=== PATIENT | male | born 1965 | race African-American/Black ===

== ENCOUNTER 2017-05-11 14:54 | Inpatient (IN) | payer OTHER ==
[2017-05-11 16:44] VITALS: BMI 29.2
--- NOTE | 2017-05-11 18:19 | HP ---
CIWA Score - CIWA Score Nausea/Vomitin-Mild Nausea/No Vomiting Muscle Tremors: 4-Moderate,w/Arms Extend Anxiety: 4-Mod. Anxious/Guarded Agitation: 4-Moderately Restless Paroxysmal Sweats: 1-Minimal Palms Moist Orientation: 0-Oriented Tacttile Disturbances: 0-None Auditory Disturbances: 0-None Visual Disturbances: 0-None Headache: 0-None Present CIWA-Ar Total Score: 14 Admission ROS BHS - HPI Chief Complaint: WITHDRAWAL SX Allergies/Adverse Reactions: Allergies Allergy/AdvReac Type Severity Reaction Status Date / Time No Known Allergies Allergy Verified 05/11/17 18:52 History of Present Illness: 52 YEARS OLD MALE WITH LONG HISTORY OF ALCOHOL COCAINE DEPENDENCE DENIES MEDICAL ISSUE HAS ANXIETY IS ADMITTED TO DETOX Exam Limitations: No Limitations - Ebola screening Have you traveled outside of the country in the last 21 days: No (N) Have you had contact with anyone from an Ebola affected area: No Have you been sick,other than usual withdrawal symptoms: No Do you have a fever: No - Review of Systems Constitutional: Changes in sleep, Weight Stable EENT: reports: Dental Problems (MULTIPLE TEETH MISSING) Respiratory: reports: No Symptoms reported Cardiac: reports: No Symptoms Reported GI: reports: Nausea, Poor Fluid Intake, Abdominal cramping : reports: No Symptoms Reported Musculoskeletal: reports: Joint Pain (RIGHT HIP) Integumentary: reports: Change in Color (RIGHT UPPER SHOULDER) Neuro: reports: Seizure (2001 ALCOHOL WITHDRAWAL RELATED), Tremors Endocrine: reports: No Symptoms Reported Hematology: reports: No Symptoms Reported Psychiatric: reports: Judgement Intact, Orientated x3, Anxious, Depressed Other Systems: Reviewed and Negative Patient History - Patient Medical History Hx Anemia: No Hx Asthma: No Hx Chronic Obstructive Pulmonary Disease (COPD): No Hx Cancer: No Hx Cardiac Disorders: No Hx Congestive Heart Failure: No Hx Hypertension: No Hx Hypercholesterolemia: No Hx Pacemaker: No HX Cerebrovascular Accident: No Hx Seizures: Yes (alcohol related 2001) Hx Dementia: No Hx Diabetes: No Hx Gastrointestinal Disorders: No Hx Liver Disease: No Hx Genitourinary Disorders: No Hx Sexually Transmitted Disorders: Yes (gonorrhea at age 15) Hx Renal Disease (ESRD): No Hx Thyroid Disease: No Hx Human Immunodeficiency Virus (HIV): No Hx Hepatitis C: No Hx Depression: Yes Hx Suicide Attempt: No Hx Bipolar Disorder: No Hx Schizophrenia: No - Patient Surgical History Past Surgical History: Yes Hx Neurologic Surgery: No Hx Cataract Extraction: No Hx Cardiac Surgery: No Hx Lung Surgery: No Hx Breast Surgery: No Hx Breast Biopsy: No Hx Abdominal Surgery: Yes (umbilical hernia 2001) Hx Appendectomy: No Hx Cholecystectomy: No Hx Genitourinary Surgery: No Hx Orthopedic Surgery: No Other Surgical History: umbilical hernia repair Anesthesia Reaction: No - PPD History Documented Results: Negative w/o proof Implanted On Prior [facility] Admission?: Yes Date: 12/13/12 PPD to be Administered?: Yes - Smoking Cessation Smoking history: Former smoker Have you smoked in the past 12 months: No Aproximately how many cigarettes per day: 0 Hx Chewing Tobacco Use: No Initiated information on smoking cessation: No - Substance & Tx. History Hx Alcohol Use: Yes Hx Substance Use: Yes Substance Use Type: Alcohol, Cocaine Hx Substance Use Treatment: Yes (2005) - Substances Abused Alcohol Route: Oral Frequency: Daily Amount used: VOLKA PINT Age of first use: 14 Date of Last Use: 05/11/17 Cocaine Route: Inhalation Frequency: 3-6 times per week Amount used: GRAM Age of first use: 28 Date of Last Use: 05/11/17 Family Disease History - Family Disease History Family Disease History: Heart Disease: Father (), Mother, [place]: Brother, Other: Father, Sister (NO CONTACT) Admission Physical Exam S - Vital Signs Vital Signs: Vital Signs - 24 hr 05/11/17 16:41 Temperature 97.3 F L Pulse Rate 67 Respiratory 20 Rate Blood Pressure 126/73 - Physical General Appearance: Yes: Appropriately Dressed, Mild Distress, Obese, Tremorous , Irritable, Sweating, Anxious HEENTM: Yes: Hearing grossly Normal, Normal ENT Inspection, Normocephalic, Normal Voice Respiratory: Yes: Chest Non-Tender, Lungs Clear, Normal Breath Sounds, No Respiratory Distress, No Accessory Muscle Use Neck: Yes: Supple, Trachea in good position Breast: Yes: Breasts Symetrical Cardiology: Yes: Regular Rhythm, Regular Rate, S1, S2 Abdominal: Yes: Non Tender, Soft Genitourinary: Yes: Within Normal Limits Back: Yes: Normal Inspection Musculoskeletal: Yes: Gait Steady, Back pain, Joint swelling, Muscle Pain Extremities: Yes: Normal Inspection, Non-Tender, Tremors Neurological: Yes: Fully Oriented, Alert, Normal Mood/Affect, Normal Response Integumentary: Yes: Warm Lymphatic: Yes: Within Normal Limits - Diagnostic (1) chronic neck pain cervical disc ,cervical radiculitis Status: Chronic (2) s/p umbilical herniorrhaphy Status: Resolved (3) Alcohol dependence with uncomplicated withdrawal Status: Acute (4) Cocaine dependence, uncomplicated Status: Chronic Cleared for Admission [facility] - Detox or Rehab [facility] Level of Care: Medically Managed Detox Regimen/Protocol: Librium [facility] Breath Alcohol Content Breath Alcohol Content: 0 Urine Drug Screen - Results Drug Screen Negative: No Urine Drug Screen Results: [place]-Cocaine
[2017-05-11] MEDS ORDERED: MENTHOL/PHENOL 1 EACH UD MM PRN (18:21)
[2017-05-11] MEDS ORDERED: IBUPROFEN 400 MG TABLET (FP) PO PRN (18:21)
[2017-05-11] MEDS ORDERED: hydrOXYzine PAMOATE 50 MG CAPSULE (FP) PO PRN ×2 (18:21→18:56)
[2017-05-11] MEDS ORDERED: guaiFENesin/D-METHORPHAN HB 10 ML UNIT-DOSE CUPS PO PRN (18:21)
[2017-05-11] MEDS ORDERED: MAGNESIUM CITRATE 300 ML BOTTLE PO PRN (18:21)
[2017-05-11] MEDS ORDERED: LOPERAMIDE HCL 2 MG CAPSULE PO PRN (18:21)
[2017-05-11] MEDS ORDERED: P-EPHED 60MG/TRIPROLIDI 2.5MG TABLET PO PRN (18:21)
[2017-05-11] MEDS ORDERED: MAG HYDROX/AL HYDROX/SIMETH 30 ML UNIT-DOSE CUP PO PRN (18:21)
[2017-05-11] MEDS ORDERED: ACETAMINOPHEN 325 MG TABLET (FP) PO PRN (18:21)
[2017-05-11] MEDS ORDERED: MAGNESIUM HYDROX 2400MG/30ML ORAL SUSPENSION 30 ML CUP PO PRN (18:21)
[2017-05-11] MEDS ORDERED: chlordiazePOXIDE HCL 25 MG CAPSULE PO PRN (18:21)
[2017-05-11] MEDS ORDERED: diphenhydrAMINE HCL 50 MG CAPSULE PO PRN (22:00)
[2017-05-11] MEDS: chlordiazePOXIDE HCL 25 MG CAPSULE PO SCH (22:24)
[2017-05-11] MEDS: THIAMINE HCL 100 MG TABLET (FP) PO SCH (22:24)
[2017-05-11 23:30] LABS: URINE APPEARANCE SLCLOUDY; URINE BILIRUBIN NEGATIVE (NEGATIVE); URINE BLOOD NEGATIVE (NEGATIVE); URINE COLOR DKYELLOW; URINE GLUCOSE (UA) NEGATIVE (NEGATIVE); URINE KETONE NEGATIVE (NEGATIVE); URINE LEUK ESTERASE NEGATIVE (NEGATIVE); URINE NITRITE NEGATIVE (NEGATIVE); URINE PROTEIN NEGATIVE (NEGATIVE); URINE UROBILINOGEN NEGATIVE mg/dL (0.2-1.0)
[2017-05-12] MEDS: chlordiazePOXIDE HCL 25 MG CAPSULE PO SCH ×4 (06:46→22:26)
[2017-05-12] MEDS: PRENATAL VITAMINS W/ FOLIC ACID TABLET (FP) PO SCH (10:25)
[2017-05-12 10:26] LABS: ALBUMIN 3.5 g/dl (3.4-5.0); ANION GAP 8 (8-16); BILIRUBIN,TOTAL 0.4 mg/dL (0.2-1.0); CO2 26 mmol/L (21-32); GLUCOSE,RANDOM 89 mg/dL (74-106); SGOT/AST 15 U/L (15-37); SGPT/ALT 30 U/L (12-78); TOT PROT 6.7 g/dl (6.4-8.2)
[2017-05-12] MEDS: LORATADINE 10 MG TABLET PO SCH (10:26)
[2017-05-12 10:27] LABS: ALK PHOS 74 U/L (45-117)
--- NOTE | 2017-05-12 13:07 | EKG ---
Test Reason : Blood Pressure : / mmHG Vent. Rate : 061 BPM Atrial Rate : 061 BPM P-R Int : 156 ms QRS Dur : 096 ms QT Int : 416 ms P-R-T Axes : 134 -25 -22 degrees QTc Int : 418 ms UNUSUAL P AXIS, POSSIBLE ECTOPIC ATRIAL RHYTHM VOLTAGE CRITERIA FOR LEFT VENTRICULAR HYPERTROPHY ABNORMAL ECG NO PREVIOUS ECGS AVAILABLE Confirmed by ADAM GIBBONS MD ([id number]) on 05/12/2017 1:06:42 PM Referred By: Confirmed By:ADAM GIBBONS MD
--- NOTE | 2017-05-12 14:28 | PN ---
[facility] CIWA - CIWA Score Nausea/Vomitin Muscle Tremors: 3 Anxiety: 3 Agitation: 2 Paroxysmal Sweats: 1-Minimal Palms Moist Orientation: 0-Oriented Tacttile Disturbances: 1-Very Mild Itch/Numbness Auditory Disturbances: 1-Very Mild Visual Disturbances: 0-None Headache: 2-Mild CIWA-Ar Total Score: 16 S Progress Note (SOAP) Subjective: ALERT,IRRITABLE,INTERRUPTED SLEEP,TREMOR Objective: 05/12/17 14:25 Vital Signs Temperature 97.1 F L 05/12/17 13:38 Pulse Rate 78 05/12/17 13:38 Respiratory Rate 20 05/12/17 13:38 Blood Pressure 116/69 05/12/17 13:38 O2 Sat by Pulse Oximetry (%) EKG INVERTEDT IN 3,AVF NO CHEST PAIN,NO SOB,NO DIZZINESS Laboratory Last Values Sodium 139 mmol/L (136-145) 05/12/17 08:00 Potassium 4.2 mmol/L (3.5-5.1) 05/12/17 08:00 Chloride 105 mmol/L (98-107) 05/12/17 08:00 Carbon Dioxide 26 mmol/L (21-32) 05/12/17 08:00 Anion Gap 8 (8-16) 05/12/17 08:00 BUN 11 mg/dL (7-18) D 05/12/17 08:00 Creatinine 1.0 mg/dL (0.7-1.3) 05/12/17 08:00 Creat Clearance w eGFR > 60 (>60) 05/12/17 08:00 Random Glucose 89 mg/dL (74-106) 05/12/17 08:00 Calcium 9.0 mg/dL (8.5-10.1) 05/12/17 08:00 Total Bilirubin 0.4 mg/dL (0.2-1.0) D 05/12/17 08:00 AST 15 U/L (15-37) 05/12/17 08:00 ALT 30 U/L (12-78) D 05/12/17 08:00 Alkaline Phosphatase 74 U/L (45-117) 05/12/17 08:00 Total Protein 6.7 g/dl (6.4-8.2) 05/12/17 08:00 Albumin 3.5 g/dl (3.4-5.0) 05/12/17 08:00 Urine Color Dkyellow 05/11/17 23:00 Urine Appearance Slcloudy 05/11/17 23:00 Urine pH 5.0 (5.0-8.0) 05/11/17 23:00 Ur Specific [place] 1.025 (1.005-1.025) 05/11/17 23:00 Urine Protein Negative (NEGATIVE) 05/11/17 23:00 Urine Glucose (UA) Negative (NEGATIVE) 05/11/17 23:00 Urine Ketones Negative (NEGATIVE) 05/11/17 23:00 Urine Blood Negative (NEGATIVE) 05/11/17 23:00 Urine Nitrite Negative (NEGATIVE) 05/11/17 23:00 Urine Bilirubin Negative (NEGATIVE) 05/11/17 23:00 Urine Urobilinogen Negative mg/dL (0.2-1.0) 05/11/17 23:00 RPR Titer Nonreactive (NONREACTIVE) 05/12/17 08:00 LAB PENDING Assessment: 05/12/17 14:27 WITHDRAWAL SYMPTOM Plan: CONTINUE DETOX
[2017-05-12 20:09] LABS: MCHC 32.6 g/dl (32.0-35.9); MEAN CELL VOLUME 88.9 fl (80-96); MEAN PLT VOLUME 8.1 fl (7.5-11.1); PLATELET COUNT 243 K/MM3 (134-434); RDW 13.8 % (11.9-15.9); WHITE BLOOD COUNT 6.1 K/mm3 (4.0-10.0)
--- NOTE | 2017-05-12 21:51 | CONSULT ---
[facility] Psychiatric Consult - Data Date of interview: 05/12/17 Admission source: [facility] Identifying data: Business Management Manager made two bedside visits in an attempt to interview this patient.Found asleep.Psychiaric evaluation is deferred.Request fo consult to be renewed if still indicated.Nursing staff is made aware.
[2017-05-12] MEDS: HYDROCORTISONE 1% TOPICAL CREAM 30 GM TUBE TP PRN (22:25)
[2017-05-12] MEDS: THIAMINE HCL 100 MG TABLET (FP) PO SCH (22:25)
[2017-05-12] MEDS: diphenhydrAMINE HCL 50 MG CAPSULE PO PRN (23:38)
[2017-05-13] MEDS: chlordiazePOXIDE HCL 25 MG CAPSULE PO SCH ×3 (06:42→18:22)
[2017-05-13] MEDS: LORATADINE 10 MG TABLET PO SCH (11:01)
[2017-05-13] MEDS: PRENATAL VITAMINS W/ FOLIC ACID TABLET (FP) PO SCH (11:01)
--- NOTE | 2017-05-13 13:35 | PN ---
S CIWA - CIWA Score Nausea/Vomitin Muscle Tremors: 3 Anxiety: 2 Agitation: 2 Paroxysmal Sweats: 1-Minimal Palms Moist Orientation: 0-Oriented Tacttile Disturbances: 1-Very Mild Itch/Numbness Auditory Disturbances: 1-Very Mild Visual Disturbances: 0-None Headache: 2-Mild CIWA-Ar Total Score: 15 BHS Progress Note (SOAP) Subjective: ALERT,IRRITABLE,ANXIOUS,INTERRUPTED SLEEP,TREMOR Objective: 05/13/17 13:34 Vital Signs Temperature 97.1 F L 05/13/17 06:48 Pulse Rate 69 05/13/17 06:48 Respiratory Rate 18 05/13/17 11:47 Blood Pressure 114/68 05/13/17 11:47 O2 Sat by Pulse Oximetry (%) Laboratory Last Values WBC 6.1 K/mm3 (4.0-10.0) 05/12/17 08:00 RBC 4.73 M/mm3 (4.00-5.60) 05/12/17 08:00 Hgb 13.7 GM/dL (11.7-16.9) 05/12/17 08:00 Hct 42.1 % (35.4-49) 05/12/17 08:00 MCV 88.9 fl (80-96) 05/12/17 08:00 MCH 29.0 pg (25.7-33.7) 05/12/17 08:00 MCHC 32.6 g/dl (32.0-35.9) 05/12/17 08:00 RDW 13.8 % (11.9-15.9) 05/12/17 08:00 Plt Count 243 K/MM3 (134-434) 05/12/17 08:00 MPV 8.1 fl (7.5-11.1) 05/12/17 08:00 Sodium 139 mmol/L (136-145) 05/12/17 08:00 Potassium 4.2 mmol/L (3.5-5.1) 05/12/17 08:00 Chloride 105 mmol/L (98-107) 05/12/17 08:00 Carbon Dioxide 26 mmol/L (21-32) 05/12/17 08:00 Anion Gap 8 (8-16) 05/12/17 08:00 BUN 11 mg/dL (7-18) D 05/12/17 08:00 Creatinine 1.0 mg/dL (0.7-1.3) 05/12/17 08:00 Creat Clearance w eGFR > 60 (>60) 05/12/17 08:00 Random Glucose 89 mg/dL (74-106) 05/12/17 08:00 Calcium 9.0 mg/dL (8.5-10.1) 05/12/17 08:00 Total Bilirubin 0.4 mg/dL (0.2-1.0) D 05/12/17 08:00 AST 15 U/L (15-37) 05/12/17 08:00 ALT 30 U/L (12-78) D 05/12/17 08:00 Alkaline Phosphatase 74 U/L (45-117) 05/12/17 08:00 Total Protein 6.7 g/dl (6.4-8.2) 05/12/17 08:00 Albumin 3.5 g/dl (3.4-5.0) 05/12/17 08:00 Urine Color Dkyellow 05/11/17 23:00 Urine Appearance Slcloudy 05/11/17 23:00 Urine pH 5.0 (5.0-8.0) 05/11/17 23:00 Ur Specific [place] 1.025 (1.005-1.025) 05/11/17 23:00 Urine Protein Negative (NEGATIVE) 05/11/17 23:00 Urine Glucose (UA) Negative (NEGATIVE) 05/11/17 23:00 Urine Ketones Negative (NEGATIVE) 05/11/17 23:00 Urine Blood Negative (NEGATIVE) 05/11/17 23:00 Urine Nitrite Negative (NEGATIVE) 05/11/17 23:00 Urine Bilirubin Negative (NEGATIVE) 05/11/17 23:00 Urine Urobilinogen Negative mg/dL (0.2-1.0) 05/11/17 23:00 RPR Titer Nonreactive (NONREACTIVE) 05/12/17 08:00 Assessment: 05/13/17 13:34 WITHDRAWAL SYMPTOM Plan: CONTINUE DETOX
[2017-05-13] MEDS: THIAMINE HCL 100 MG TABLET (FP) PO SCH (22:18)
[2017-05-13] MEDS: diphenhydrAMINE HCL 50 MG CAPSULE PO PRN (22:18)
[2017-05-13] MEDS: chlordiazePOXIDE 5 MG CAPSULE PO SCH (22:18)
[2017-05-14] MEDS: chlordiazePOXIDE 5 MG CAPSULE PO SCH (05:02)
--- NOTE | 2017-05-14 09:08 | PN ---
S Progress Note (SOAP) Subjective: alert,no complaint Objective: 05/14/17 09:07 Vital Signs Temperature 96.9 F L 05/14/17 06:32 Pulse Rate 70 05/14/17 06:32 Respiratory Rate 18 05/14/17 06:32 Blood Pressure 113/61 05/14/17 06:32 O2 Sat by Pulse Oximetry (%) Assessment: 05/14/17 09:07 stable for discharge Plan: discharge today,follow up with after care program as arrangement
--- NOTE | 2017-05-14 09:12 | DS ---
[facility] Detox Discharge Summary Admission Date: 05/11/17 Discharge Date: 05/14/17 - History Present History: Alcohol Dependence, Cocaine Dependence Additional Comments: follow up with after care program as arrangement - Physical Exam Results Vital Signs: Vital Signs Temperature 96.9 F L 05/14/17 06:32 Pulse Rate 70 05/14/17 06:32 Respiratory Rate 18 05/14/17 06:32 Blood Pressure 113/61 05/14/17 06:32 O2 Sat by Pulse Oximetry (%) Pertinent Admission Physical Exam Findings: withdrawal symptom - Treatment Hospital Course: Detox Protocol Followed, Detoxed Safely, Responded well, Discharged Condition Good Patient has Accepted a Rehab Referral to: declined - Medication Discharge Medications: Ambulatory Orders NK [No Known Home Medication] 05/11/17 - AMA Did Patient Leave Against Medical Advice: No
[2017-05-14] MEDS: HYDROCORTISONE 1% TOPICAL CREAM 30 GM TUBE TP PRN (09:30)
[2017-05-14] MEDS: PRENATAL VITAMINS W/ FOLIC ACID TABLET (FP) PO SCH (09:31)
[2017-05-14] MEDS: LORATADINE 10 MG TABLET PO SCH (09:31)
[2017-05-14 09:36] VITALS: BP 118/70; PULSE 76; TEMP 97.3
[2017-05-14] MEDS ORDERED: chlordiazePOXIDE HCL 10 MG CAPSULE PO SCH (23:00)
== END 2017-05-14 09:41 | disposition home or self-care (01) | DRG 774 ==
LOC: YASAS 14:54 → Y6N 19:30
PROVIDERS: ADMIT Internal Medicine; ATTEND Internal Medicine
PROC: HZ2ZZZZ Detoxification Services for Substance Abuse Treatment (ICD-10-PCS; principal; 2017-05-11)
DX: F10.230 Alcohol dependence with withdrawal, uncomplicated (principal); F14.20 Cocaine dependence, uncomplicated; Z86.69 Personal history of other diseases of the nervous system and sense organs; Z87.891 Personal history of nicotine dependence; Z87.438 Personal history of other diseases of male genital organs
CPT/HCPCS: 36415; 80053; 81003; 85027; 86593; 93005; 93010

== ENCOUNTER 2024-08-17 13:54 | Inpatient (IN) | payer OTHER ==
[2024-08-17 14:39] VITALS: BMI 28.1
[2024-08-17] MEDS ORDERED: NALOXONE (NARCAN) HCL 4 MG/0.1 ML SPRAY NS PRN (14:52)
[2024-08-17] MEDS ORDERED: LOPERAMIDE HCL 2 MG CAPSULE PO PRN (14:52)
[2024-08-17] MEDS ORDERED: IBUPROFEN 600 MG TABLET (FP) PO PRN (14:52)
[2024-08-17] MEDS ORDERED: MAGNESIUM HYDROX 2400MG/30ML ORAL SUSPENSION 30 ML CUP PO PRN (14:52)
[2024-08-17] MEDS ORDERED: MAG HYDROX/AL HYDROX/SIMETH 30 ML UNIT-DOSE CUP PO PRN (14:52)
[2024-08-17] MEDS ORDERED: NICOTINE POLACRILEX 2 MG GUM BUC PRN (14:52)
[2024-08-17] MEDS ORDERED: NICOTINE POLACRILEX 2 MG LOZENGE BC PRN (14:52)
[2024-08-17] MEDS ORDERED: IBUPROFEN 400 MG TABLET (FP) PO PRN (14:52)
[2024-08-17] MEDS ORDERED: POLYETHYLENE GLYCOL (HEALTHYLAX) 3350 17 GM PACKET PO PRN (14:52)
[2024-08-17] MEDS ORDERED: TUBERCULIN PPD 5 TU/0.1ML VIAL ID ONE ×2 (18:19→22:49)
[2024-08-17] MEDS: guaiFENesin 600 MG TABLET.ER (FP) PO PRN (18:40)
[2024-08-17] MEDS: TUBERCULIN PPD 5 TU/0.1ML SYRINGE (IN PATIENT USE ONLY) ID ONE (18:41)
[2024-08-17] MEDS: MELATONIN 5 MG TABLETS PO SCH (21:13)
[2024-08-17] MEDS: THIAMINE 100 MG TABLET PO SCH (21:13)
[2024-08-17] MEDS: ATORVASTATIN CA 10 MG TABLET (FP) PO SCH (21:14)
[2024-08-17] MEDS ORDERED: PATIENT'S OWN MEDICATION (NON-FORMULARY) (Simvastatin 10 MG Tablet) PO SCH (22:00)
[2024-08-18] MEDS: BENZONATATE 200 MG CAPSULE PO PRN (03:45)
[2024-08-18 09:26] LABS: CHLORIDE 108 mmol/L (98-107); HEMOGLOBIN 13.2 GM/dL (11.7-16.9); MCH 28.4 pg (25.7-33.7); MCHC 32.2 g/dl (32.0-35.9); MEAN PLT VOLUME 7.4 fl (7.5-11.1); PLATELET COUNT 210 10^3/uL (134-434); POTASSIUM 4.1 mmol/L (3.5-5.1); RBC 4.66 M/mm3 (4.00-5.60); RDW 15.3 % (11.9-15.9); SODIUM 139 mmol/L (136-145); WHITE BLOOD COUNT 6.1 K/mm3 (4.0-10.0)
[2024-08-18 10:04] LABS: ALBUMIN 2.8 g/dl (3.4-5.0); ANION GAP 5 mmol/L (4-13); CALCIUM 8.8 mg/dL (8.5-10.1); CO2 26 mmol/L (21-32); GLUCOSE,RANDOM 97 mg/dL (74-106)
[2024-08-18 10:05] LABS: BLOOD UREA NITROGEN 9.9 mg/dL (7-18); CREATININE 0.8 mg/dL (0.55-1.3)
[2024-08-18 10:06] LABS: BILIRUBIN,TOTAL 0.3 mg/dL (0.2-1); SGPT/ALT 22 U/L (13-61); TOT PROT 5.7 g/dl (6.4-8.2)
[2024-08-18 10:07] LABS: ALK PHOS 80 U/L (45-117)
[2024-08-18 10:08] LABS: SGOT/AST 18 U/L (15-37)
[2024-08-18] MEDS: amLODIPine BESYLATE 10 MG TABLET (FP) PO SCH (11:06)
[2024-08-18] MEDS: PRENATAL VITAMINS W/ FOLIC ACID TABLET (FP) PO SCH (11:07)
[2024-08-18] MEDS: BENZOCAINE/MENTHOL (CHLORASEPTIC ) LOZENGE MM PRN (16:17)
[2024-08-18] MEDS: ACETAMINOPHEN 325 MG TABLET (FP) PO PRN (16:33)
[2024-08-18] MEDS: guaiFENesin 600 MG TABLET.ER (FP) PO PRN (21:10)
[2024-08-18 23:44] LABS: PH,URINE 7.5 (5.0-8.0); URINE APPEARANCE CLEAR; URINE BILIRUBIN NEGATIVE (NEGATIVE); URINE COLOR YELLOW; URINE GLUCOSE (UA) NEGATIVE (NEGATIVE); URINE KETONE NEGATIVE (NEGATIVE); URINE LEUK ESTERASE NEGATIVE (NEGATIVE); URINE NITRITE NEGATIVE (NEGATIVE); URINE PROTEIN NEGATIVE (NEGATIVE); URINE UROBILINOGEN 0.2 mg/dL (0.2-1.0)
[2024-08-19] MEDS: hydrOXYzine PAMOATE 25 MG CAPSULE (FP) PO PRN (21:04)
[2024-08-20] MEDS: P-EPHED 60MG/TRIPROLIDI 2.5MG TABLET PO PRN (09:52)
[2024-08-21 06:49] VITALS: RESP 20; TEMP 96.9
[2024-08-21] MEDS: NALOXONE (NYS OPIOID OVERDOSE PROGRAM) 4 MG/0.1 ML SPRAY NS SCH (08:38)
[2024-08-21 08:56] VITALS: BP 125/79; PULSE 77
== END 2024-08-21 09:16 | disposition home or self-care (01) | DRG 895 ==
LOC: YASAS 13:54 → Y3E 17:47
PROVIDERS: ADMIT Psychiatry & Neurology Pain Medicine; ATTEND Psychiatry & Neurology Pain Medicine
PROC: HZ42ZZZ Group Counseling for Substance Abuse Treatment, Cognitive-Behavioral (ICD-10-PCS; principal; 2024-08-17)
DX: F14.20 Cocaine dependence, uncomplicated (principal); F10.20 Alcohol dependence, uncomplicated; F17.210 Nicotine dependence, cigarettes, uncomplicated; E78.5 Hyperlipidemia, unspecified; I10 Essential (primary) hypertension; J06.9 Acute upper respiratory infection, unspecified; Z96.641 Presence of right artificial hip joint; Z56.0 Unemployment, unspecified
CPT/HCPCS: 0241U-QW; 36415; 71046-TC-FY; 80053; 80305; 80307; 81003; 85027; 86780; 93005; 93010